=== PATIENT | male | born 1970 | race Caucasian/White ===

== ENCOUNTER 2017-03-12 12:45 | Emergency (ER) | payer MEDICAID ==
[~2017-03-12] VITALS: Ht 170.2 cm; Wt 96.2 kg
[2017-03-12 13:58] LABS: BASOPHIL % 0.5 % (0-2); PLATELET COUNT 230 x10^3mcL (130-400); RED CELL DISTRIBUTION WIDTH 12.5 % (11.5-14.5)
[2017-03-12 14:07] LABS: CALCIUM 8.9 mg/dL (8.5-10.1); CARBON DIOXIDE 26.3 mmol/L (21-32); CHLORIDE SERUM 105 mmol/L (98-107); GFR1 > 60 mL/min; GLUCOSE SERUM 119 mg/dL (74-106); POTASSIUM SERUM 3.6 mmol/L (3.5-5.1); SODIUM SERUM 138 mmol/L (136-145)
[2017-03-12 14:16] LABS: ALBUMIN 4.1 g/dL (3.4-5.0); ALKALINE PHOSPHATASE 89 U/L (46-116); ALT/SGPT 33 U/L (16-63); AST/SGOT 35 U/L (15-37); BILIRUBIN TOTAL 1.14 mg/dL (0.20-1.00); TOTAL PROTEIN, SERUM 8.1 g/dL (6.4-8.2)
[2017-03-12 15:09] VITALS: BP 125/73
== END 2017-03-12 15:09 | disposition home or self-care (01) ==
LOC: ED 12:45
PROVIDERS: Specialist
DX: T67.5XXA Heat exhaustion, unspecified, initial encounter (principal); R19.7 Diarrhea, unspecified; R50.9 Fever, unspecified; M79.1 Myalgia; R53.1 Weakness; X58.XXXA Exposure to other specified factors, initial encounter; Y93.89 Activity, other specified; Y99.8 Other external cause status; Y92.89 Other specified places as the place of occurrence of the external cause
CPT/HCPCS: J1885; J2405; J3010; J7030

== ENCOUNTER 2017-03-17 19:14 | Emergency (ER) | payer MEDICAID ==
[2017-03-17 22:27] VITALS: BP 138/75
== END 2017-03-17 22:27 | disposition home or self-care (01) ==
LOC: ED 19:14
DX: H81.399 Other peripheral vertigo, unspecified ear (principal); R51 Headache
CPT/HCPCS: J8597; Q0092